=== PATIENT | male | born 1970 | race Hispanic/Latino ===

== ENCOUNTER → 2024-05-01 | Outpatient (REF) | payer BC ==
[~2024-05-01] MED LIST: FUROSEMIDE INJ 10 MG/ML 4 ML VIAL ONE
== END ==
LOC: NM 12:10
PROVIDERS: ATTEND Urology
DX: N26.1 Atrophy of kidney (terminal) (principal); Z87.442 Personal history of urinary calculi
CPT/HCPCS: 78708; A9562; J1940